=== PATIENT | male | born 1950 | race Caucasian/White ===

== ENCOUNTER → 2019-08-24 | Emergency (ER) | payer MEDICARE, OTHER ==
[~2019-08-24] VITALS: Ht 180.3 cm; Wt 100.0 kg
[~2019-08-24] MED LIST: HYDROmorphone 1 mg/ml syringe IM ONE; OXYC-145 PO; diazepam 5mg tablet PO ONE; ketorolac trometh. 30mg/ml inj. IM ONE
[2019-08-24 17:30] VITALS: BP 156/77
--- NOTE | 2019-08-24 17:46 | NUR ---
resting in poc after dilaudid im
--- NOTE | 2019-08-24 18:35 | NUR ---
AWAITNG DIP DYER FROM
== END | disposition home or self-care (01) ==
LOC: ER 14:54
DX: M54.42 Lumbago with sciatica, left side (principal); I10 Essential (primary) hypertension; Z90.49 Acquired absence of other specified parts of digestive tract; Z98.890 Other specified postprocedural states; Z88.6 Allergy status to analgesic agent; Z79.899 Other long term (current) drug therapy
CPT/HCPCS: 72100; 96372; 99284; J1170; J1885

== ENCOUNTER 2024-08-09 10:25 | Emergency (ER) | payer MEDICARE, BC ==
[~2024-08-09] VITALS: Ht 177.8 cm; Wt 95.5 kg
[~2024-08-09 10:25] MED LIST changes: -HYDROmorphone 1 mg/ml syringe IM ONE; -diazepam 5mg tablet PO ONE; -ketorolac trometh. 30mg/ml inj. IM ONE
[2024-08-09 10:30] VITALS: BP 183/76; PULSE 85; RESP 18; TEMP 98.7; O2SAT 96
[2024-08-09] MEDS: ketorolac trometh 15mg/ml vial 15 MG/ML ML IM ONE (11:59)
[2024-08-09] MEDS: triamcinolone acetonide 40mg/ml inj IM ONE (11:59)
== END 2024-08-09 12:09 | disposition home or self-care (01) ==
LOC: ER 10:26
DX: M17.12 Unilateral primary osteoarthritis, left knee (principal); I10 Essential (primary) hypertension; G89.29 Other chronic pain; M54.9 Dorsalgia, unspecified; Z90.49 Acquired absence of other specified parts of digestive tract; Z88.5 Allergy status to narcotic agent; F10.90 Alcohol use, unspecified, uncomplicated; Y90.9 Presence of alcohol in blood, level not specified; Z98.890 Other specified postprocedural states
CPT/HCPCS: 96372; 99284; J1885; J3301

== ENCOUNTER 2024-09-16 07:53 | Emergency (ER) | payer MEDICARE, BC ==
[~2024-09-16] VITALS: Ht 177.8 cm; Wt 90.0 kg
--- NOTE | 2024-09-16 08:29 | Physician Documentation ---
History of Present Illness ~ Chief Complaint: Neck pain Stated Complaint: NECK PAIN X3 MONTHS Time Seen by MD: 08:08 Primary Medical Doctor: JANE Mode of Arrival: Dropped Off HPI 74-year-old male presenting with acute onset neck pain that has been ongoing since yesterday. Patient states that it suddenly started without any triggers. He was just sitting at home when he suddenly felt sharp left-sided neck pain that radiates from his neck down to his trapezius area. He states that any attempt at movement of his neck exacerbates the pain. He denies any numbness or tingling or weakness in his left arm. He states that about a week ago she did fall but did not have any neck pain at that time. He also states that he had some knee pain a couple of weeks ago that spontaneously resolved. He denies any chest pain, shortness of breath or any other associated symptoms. Medication Reconciliation Allergies: Coded Allergies: acetaminophen (Verified Adverse Reaction, Intermediate, 09/16/24) morphine (Unverified Adverse Reaction, Intermediate, severe vomiting, 09/16/24) Scheduled PRN Oxycodone HCl/Acetaminophen (Percocet 5-325 mg Tablet), 1 TAB PO Q6H PRN for pain Past Medical History Past Medical History: Hypertension, Chronic Back Pain Past Surgical History: cholecystectomy, orthopedic surgeries, other Alcohol Use: Heavy Drug Use: none Lives with: Spouse Review of Systems All Other Systems at this time: Reviewed and Negative Physical Exam Vital Signs: Temperature: 97.6, Source: Temporal, Heart Rate: 82, Respiratory Rate: 14, BP: 175/83, Pulse Oximetry: 98, Weight: 89.950 Oxygen Flow Rate: 0 Physical Exam I have reviewed the triage vitals. CONST: Well developed and well nourished. In no acute distress HENT: Head Atraumatic EYES: Pupils are equal, round and reactive to light. Normal conjunctiva NECK: Significantly limited range of motion due to pain. Any attempt at movement of the neck produces severe pain. There is some tenderness to palpation over the left cervical paraspinal muscles as well as the left sternocleidomastoid. No bruits auscultated. No lymphadenopathy. CARDIO: Normal rate and regular rhythm. No murmurs, rubs, or gallops. S1, S2. PULM/CHEST: No respiratory distress. Lungs clear to auscultation. No wheeze ABD: Soft and nontender. Nondistended. Bowel sounds normal. No guarding. : Exam deferred MSK: No edema. No deformity. NEURO: Alert and oriented to person, place and time. Moving all extremities SKIN: Warm and dry. PSYCH: Normal mood and affect. Good eye contact. Progress Results/Orders Results/Orders Orders - FRANCOISE CASTILLO MD Chest,Single View (09/16/24 08:24) Ct Cervical Spine (09/16/24 09:22) Completed Orders - FRANCOISE CASTILLO MD Cbc/Diff (09/16/24 08:24) MG (09/16/24 08:24) PBNP (09/16/24 08:24) Chest,Single View (09/16/24 08:24) Electrocardiogram (09/16/24 08:24) BMP (09/16/24 08:24) Hs Troponin I W Calculations (09/16/24 08:24) Hs Troponin I W Calculations (09/16/24 10:24) Ct Cervical Spine (09/16/24 09:22) Acetaminophen 325mg Tablet (Tylenol Tabl (09/16/24 08:25) Oxycodone Immed Release Tablet (Oxy Ir T (09/16/24 10:10) Cyclobenzaprine Tablet (Flexeril Tablet) (09/16/24 11:30) Medications Received in ER Medications (Trade) Dose Ordered Sig/Heena Route PRN Reason Start Time Stop Time Status Last Admin Dose Admin (Tylenol tablet) 975 mg ONCE ONCE PO 09/16/24 08:25 09/16/24 08:28 DC 09/16/24 08:41 975 MG (OXY IR tablet) 10 mg ONCE ONCE PO 09/16/24 10:10 09/16/24 10:11 DC 09/16/24 10:25 10 MG (Flexeril tablet) 10 mg ONCE ONCE PO 09/16/24 11:30 09/16/24 11:32 DC 09/16/24 11:37 10 MG Vital Signs 09/16/24 09/16/24 09/16/24 09/16/24 07:55 08:08 08:09 09:08 Temp 97.6 97.6 Pulse 74 82 69 Resp 18 14 14 13 B/P (MAP) 161/74 175/83 (113) 167/77 (107) Pulse Ox 99 98 98 O2 Flow Rate 0 0 09/16/24 09/16/24 09/16/24 09/16/24 10:02 10:25 11:12 12:28 Temp 97.6 Pulse 69 76 68 Resp 14 12 12 12 B/P (MAP) 174/72 (106) 168/75 (106) 163/70 (101) Pulse Ox 98 98 97 O2 Flow Rate 0 0 0 09/16/24 13:29 Pulse 64 Resp 16 B/P (MAP) 175/72 (106) Pulse Ox 96 O2 Flow Rate 0 Laboratory Tests Test 09/16/24 08:51 09/16/24 10:48 White Blood Count 10.4 Red Blood Count 4.25 L Hemoglobin 13.0 L Hematocrit 37.7 L Mean Corpuscular Volume 88.7 Mean Corpuscular Hemoglobin 30.6 Mean Corpuscular Hemoglobin Concent 34.5 Red Cell Distribution Width 13.4 Platelet Count 269 Mean Platelet Volume 8.7 Neutrophils (%) (Auto) 79.5 H Lymphocytes (%) (Auto) 11.7 L Monocytes (%) (Auto) 8.1 Eosinophils (%) (Auto) 0.3 Basophils (%) (Auto) 0.4 Neutrophils # (Auto) 8.2 H Lymphocytes # (Auto) 1.2 Monocytes # (Auto) 0.8 Eosinophils # (Auto) 0.0 Basophils # (Auto) 0.0 CBC Comment Sodium Level 139 Potassium Level 3.7 Chloride Level 101 Carbon Dioxide Level 30.1 Anion Gap 8 Blood Urea Nitrogen 8 Creatinine 0.59 L Estimated GFR/1.73 m2 > 90 BUN/Creatinine Ratio 13.6 Glucose Level 162 H Calcium Level 8.9 Magnesium Level 1.6 Troponin I High Sensitivity 10 9 Pro-B-Type Natriuretic Peptide 455 H Albumin 3.3 L Chemistry Comments Troponin I High Sens Percent Delta 10 Troponin I Hi Sens Absolute Change -1 EKG/XRAY/CT/US/VASC/MRI EKG : Additional Comment EKG interpreted by CONNIE Castillo shows normal sinus rhythm at a rate of 74, normal axis, no WA intervals. No ischemia Chest X-Ray : Additional Comments EXAM: DI CHEST,SINGLE VIEW Indication: CHEST PAIN Technique: Single frontal view of the chest was obtained Comparison: None FINDINGS: Lines and Tubes: None Lungs: No focal consolidation. Pleura: No effusion. No pneumothorax. Cardiomediastinal contours: Unremarkable Bones: No acute osseous abnormality. IMPRESSION: No acute cardiopulmonary disease. : Impression Procedure: CT CT CERVICAL SPINE 09/16/2024 09:18 AM Indication: neck pain Comparison Study: None. Technique: Axial images were obtained and reformatted in coronal and sagittal planes. All CT scans at this medical facility are performed using dose modulation techniques as appropriate to a performed exam including the following: Automated exposure control was utilized; adjustment of the MA and/or KV according to patient size; and use of iterative reconstruction technique. CT Dose: CTDI volume is 21 mGy. Dose-length product is 487 mGy*cm FINDINGS: Bones: The vertebrae are normal in height. Normal alignment of the vertebrae. Lateral masses C1 and C2 are well aligned. The posterior facet joints are well aligned. Narrowing of C4-C5 C7-T1 disc heights noted irregularity endplates and discogenic endplate changes. Posterior facet arthropathy throughout the cervical spine noted. Bridging anterior osteophytes are noted in the upper cervical spine. There is hypertrophy and calcification of the transverse ligament posterior to odontoid. Soft tissues: Paraspinal and prevertebral soft tissues are within normal limits. Ossification of the ligamentum nuchae at C5 level. Other: Atherosclerotic calcification of the bilateral carotid bulbs. IMPRESSION: 1. Straightening of normal lordosis that could be positional, reflect muscle spasm or pain. Correlate clinically. 2. No acute osseous abnormality. 3. Multilevel degenerative disc disease and posterior facet arthropathy with mild osseous central canal stenosis and varying degrees of neural foramina stenosis ranging from mild to severe. Medical Decision Making Additional Comment 74-year-old male presenting with neck pain. Differential diagnosis includes but not limited to cervical spondylosis versus cervical muscle spasm versus torticollis versus other potential etiology. We did do a CT of the neck which showed no cervical fractures. On examination the patient is tender over the muscle and has decreased range of motion which would be consistent with a potential muscle spasm. The patient was medicated 1st with oxycodone which mildly improved the pain and then with cyclobenzaprine 10 mg which significantly improved the patient's symptoms. On re-examination the patient still has pain but it is improved from before. I suspect the patient is likely suffering from a cervical muscle spasm although I did inform him that more significant etiology such as a venous thrombosis or a carotid thrombus can not be fully ruled out at this time but are unlikely. At this point in time as the patient is improved I believe he is safe to have him be discharged home. I will give him a prescription for cyclobenzaprine 10 mg to take as needed. Advised to monitor for improvement and resolution. Follow up closely with primary care provider in the next 2-3 days. Return to the ED with any acutely worsening symptoms. Departure Disposition: HOME / SELF CARE / HOMELESS Impression: Primary Impression: Muscle spasms of neck Additional Impression: Cervical spondylosis Condition: Improved Referrals: NO PRIMARY CARE PROVIDER (PCP) Prescriptions Cyclobenzaprine HCl (Cyclobenzaprine HCl) 10 Mg Tablet 1 TAB PO HS for muscle spasms for 30 Days, #30 TAB Prov: FRANCOISE CASTILLO MD 09/16/24 Signature Scribe Signature: 1 Attestation: 1 FRANCOISE CASTILLO MD Sep 16, 2024 08:29
--- NOTE | 2024-09-16 08:36 | ELECTROCARDIOGRAPH REPORT ---
[facility] Test Date: 2024-09-16 Test Time: 08:34:07 Pat Name: THOM FRYE Department: [facility] Patient [facility]: [id number] Room: Gender: M [employer] Supervisor: : 1950 Requested By: FRANCOISE CASTILLO Order Number: [id number] Reading MD: Dr. Jorge Leung Measurements Intervals [place] Rate: 72 P: -18 IN: 240 QRS: 21 QRSD: 80 T: 22 QT: 382 QTc: 419 Interpretive Statements Sinus rhythm Prolonged IN interval Minimal ST depression, inferior leads Electronically Signed On 09-16-2024 19:21:[address] Jorge Leung Please click the below link to view image of tracing.
[2024-09-16] MEDS: acetaminophen 325mg tablet PO ONE (08:41)
--- NOTE | 2024-09-16 09:02 | RADIOLOGY REPORT ---
EXAM: DI CHEST,SINGLE VIEW Indication: CHEST PAIN Technique: Single frontal view of the chest was obtained Comparison: None FINDINGS: Lines and Tubes: None Lungs: No focal consolidation. Pleura: No effusion. No pneumothorax. Cardiomediastinal contours: Unremarkable Bones: No acute osseous abnormality. IMPRESSION: No acute cardiopulmonary disease.
[2024-09-16 09:07] LABS: BASOPHILS % (AUTO) 0.4 % (0-1); EOSINOPHILS % (AUTO) 0.3 % (0-6); HEMATOCRIT 37.7 % (42.0-52.0); LYMPHOCYTES # (AUTO) 1.2 X10'3 (1.1-4.8); LYMPHOCYTES % (AUTO) 11.7 % (21-51); MEAN CORPUSCULAR HEMOGLOBIN 30.6 PG (27.0-31.0); MEAN CORPUSCULAR HGB CONC 34.5 g/dL (33.0-36.5); MEAN CORPUSCULAR VOLUME 88.7 FL (78-98); MEAN PLATELET VOLUME 8.7 FL (7.4-10.4); MONOCYTES # (AUTO) 0.8 X10'3 (0-0.9); MONOCYTES % (AUTO) 8.1 % (2-12); NEUTROPHILS # (AUTO) 8.2 X10'3 (1.8-7.7); NEUTROPHILS % (AUTO) 79.5 % (42-75); PLATELET COUNT 269 X10'3 (140-440); RED BLOOD COUNT 4.25 X10'6 (4.70-6.10); RED CELL DISTRIBUTION WIDTH 13.4 % (11.5-14.5); WHITE BLOOD COUNT 10.4 X10'3 (4.5-11.0)
[2024-09-16 09:39] LABS: ALBUMIN 3.3 G/DL (3.4-5.0); ANION GAP 8 (8-16); BLOOD UREA NITROGEN 8 MG/DL (7-18); BUN/CREATININE RATIO 13.6 (10.0-20.0); CALCIUM 8.9 MG/DL (8.5-10.1); CHLORIDE 101 MMOL/L (99-107); CREATININE 0.59 MG/DL (0.60-1.10); GLUCOSE 162 MG/DL (70-104); MAGNESIUM 1.6 MG/DL (1.5-2.4); PRO BRAIN NATRIURETIC PEPTIDE 455 PG/ML (0-125); SODIUM 139 MMOL/L (135-145); TOTAL CARBON DIOXIDE 30.1 MMOL/L (24-32); eCRCL 113 ML/MIN; eGFR > 90 ML/MIN
--- NOTE | 2024-09-16 09:45 | RADIOLOGY REPORT ---
Procedure: CT CT CERVICAL SPINE 09/16/2024 09:18 AM Indication: neck pain Comparison Study: None. Technique: Axial images were obtained and reformatted in coronal and sagittal planes. All CT scans at this medical facility are performed using dose modulation techniques as appropriate t o a performed exam including the following: Automated exposure control was utilized; adjustment of th e MA and/or KV according to patient size; and use of iterative reconstruction technique. CT Dose: CTDI volume is 21 mGy. Dose-length product is 487 mGy*cm FINDINGS: Bones: The vertebrae are normal in height. Normal alignment of the vertebrae. Lateral masses C1 and C2 are well aligned. The posterior facet joints are well aligned. Narrowing of C4-C5 C7-T1 disc heigh ts noted irregularity endplates and discogenic endplate changes. Posterior facet arthropathy through out the cervical spine noted. Bridging anterior osteophytes are noted in the upper cervical spine. Th ere is hypertrophy and calcification of the transverse ligament posterior to odontoid. Soft tissues: Paraspinal and prevertebral soft tissues are within normal limits. Ossification of the ligamentum nuchae at C5 level. Other: Atherosclerotic calcification of the bilateral carotid bulbs. IMPRESSION: 1. Straightening of normal lordosis that could be positional, reflect muscle spasm or pain. Correlate clinically. 2. No acute osseous abnormality. 3. Multilevel degenerative disc disease and posterior facet arthropathy with mild osseous central can al stenosis and varying degrees of neural foramina stenosis ranging from mild to severe.
[2024-09-16 09:50] LABS: POTASSIUM 3.7 MMOL/L (3.5-5.1)
[2024-09-16] MEDS: oxyCODONE IR 5mg (immed. release) tablet PO ONE (10:25)
[2024-09-16] MEDS: cyclobenzaprine 10mg tablet PO ONE (11:37)
[2024-09-16] MEDS ORDERED: CYCL-394 PO (13:55)
[2024-09-16] MEDS: ondansetron/PF 4mg/2ml inj IV ONE (14:04)
[2024-09-16] MEDS: amLODIPine 5mg tablet PO ONE ×2 (15:11)
[2024-09-16 16:04] VITALS: BP 190/82; PULSE 60; RESP 15; TEMP 97.6; O2SAT 98
== END 2024-09-16 16:17 | disposition home or self-care (01) ==
LOC: ER 07:53
DX: M47.812 Spondylosis without myelopathy or radiculopathy, cervical region (principal); I10 Essential (primary) hypertension; Z88.5 Allergy status to narcotic agent; Z90.49 Acquired absence of other specified parts of digestive tract
CPT/HCPCS: 36415; 71045; 72125; 80048; 83735; 83880; 84484; 85025; 93005; 96374; 99285; J2405